=== PATIENT | female | born 1970 | race Caucasian/White ===

== ENCOUNTER 2018-12-05 09:07 | Day surgery (SDC) | payer OTHER ==
[~2018-12-05] VITALS: Ht 162.6 cm; Wt 81.3 kg
[2018-12-05] MEDS ORDERED: [UNRECOGNIZED DRUG - OTHER] (09:47)
[2018-12-05] MEDS ORDERED: TRAMADOL PRN (09:47)
[2018-12-05] MEDS ORDERED: IBUPROFEN PRN (09:47)
[2018-12-05 09:58] VITALS: Ht 162.6 cm; Wt 81.3 kg
--- NOTE | 2018-12-05 10:13 | PREAC ---
Date/Time of Note Date/Time of Note DATE: 12/05/18 TIME: 10:12 Anesthesia Eval and Record Evaluation Time Pre-Procedure Interview DATE: 12/05/18 TIME: 10:12 Age 48 Sex female NPO: 8 hrs Preoperative diagnosis anemia Planned procedure colonoscopy Past Medical History Past Medical History: Includes Musculoskeletal: Osteoarthritis Surgery & Anesthesia Issues No known issue Meds Anticoagulation: No Beta Aaron within 24 hr: No Reason Beta Aaron not given: Pt. not on B-Aaron Reported Medications [Unisom Otc] No Conflict Check 12/05/18 [Tramadol Prn] No Conflict Check 12/05/18 [Ibuprofen Prn] No Conflict Check 12/05/18 Meds reviewed: Yes Allergies Coded Allergies: No Known Drug Allergies (Verified Allergy, Unknown, 05/18/14) Allergies Reviewed: Yes Labs/Studies Labs Reviewed: Reviewed by anesthesiologist test: Negative Pre-procedure Exam Airway: Adequate mouth opening, Adequate thyromental dist Mallampati: Mallampati II Teeth: Normal Lung: Normal Heart: Normal ASA Physical Status ASA physical status: 2 Emergency: None Pre-operative Attestations Prior to commencing anesthesia and surgery, the patient was re-evaluated, there was verification of: *The patient's identity *The results of appropriate recent lab work and preoperative vital signs *The above evaluation not changing prior to induction *Anesthetic plan, risk benefits, alternative and complications discussed with patient/family; questions answered; patient/family understands, accepts and wishes to proceed. KEL MORELAND December 05, 2018 10:13
[2018-12-05 10:16] VITALS: BP 138/78; PULSE 81; RESP 22
[2018-12-05] MEDS ORDERED: PROPOFOL 20 ML ONE (10:21)
[2018-12-05] MEDS ORDERED: LIDOCAINE 100 MG SYRINGE ONE (10:21)
[2018-12-05 11:04] VITALS: BP 127/86; PULSE 65; RESP 18
--- NOTE | 2018-12-07 10:25 | PAC ---
Date/Time of Note Date/Time of Note DATE: 12/07/18 TIME: 10:25 Post-Anesthesia Notes Post-Anesthesia Note Last documented vital signs Vital Signs Date Temp Pulse Resp B/P (MAP) Pulse Ox O2 O2 Flow FiO2 Time Delivery Rate 12/05/18 65 18 127/86 97 Room Air 11:04 (100) Activity: WNL Respiratory function: WNL Cardiovascular function: WNL Mental status: Baseline Pain reasonably controlled: Yes Hydration appropriate: Yes Nausea/Vomiting absent: Yes KEL MORELAND December 07, 2018 10:25
== END 2018-12-05 12:55 | disposition home or self-care (01) ==
LOC: GIL 09:07
PROVIDERS: ATTEND Internal Medicine Gastroenterology
DX: Z12.11 Encounter for screening for malignant neoplasm of colon (principal); K64.8 Other hemorrhoids; D64.9 Anemia, unspecified; M19.90 Unspecified osteoarthritis, unspecified site
CPT/HCPCS: 45378; J2001